=== PATIENT | male | born 1960 | race Caucasian/White ===

== ENCOUNTER 2017-08-06 09:27 | Outpatient (CLI) | payer BC ==
[2017-08-06 10:53] LABS: Bilirubin Negative (Negative); Blood, Urine Negative (Negative); Clarity CLEAR (Clear); Glucose, Urine (Dipstick) >=1000 mg/dL (Negative); Leukocyte Negative (Negative); Nitrite Negative (Negative); Protein, Urine (Dipstick) Negative (Neg-Trace); Specific Gravity, Urine 1.034 (1.002-1.036); Urobilinogen 0.2 mg/dL (0.2-1.0); pH, Urine 5.5 (5.0-9.0)
[2017-08-06 10:54] LABS: Prothrombin Time 13.2 SEC (12.0-14.7)
[2017-08-06 10:55] LABS: Bacteria/HPF None Seen HPF (None Seen); Hyaline Casts/LPF 0-3 HYALINE CAST LPF (0-3 Hyaline); RBC/HPF 0-3 HPF (0-3); Squamous Epithelial None Seen HPF (0-3); WBC/HPF None Seen HPF (0-3)
[2017-08-06 11:04] LABS: Anion Gap 12 mmol/L (10-20); BUN (Urea Nitrogen) 16 mg/dL (8.4-25.7); Calc. Creatinine Clearance 0 mL/min (70-130); Carbon Dioxide 29 mmol/L (22-29); Chloride 103 mmol/L (98-107); Estimated GFR-MDRD 57; Glucose 245 mg/dL (70-105); Potassium 4.4 mmol/L (3.5-5.1); Sodium 140 mmol/L (136-145)
[2017-08-06 11:33] LABS: Hemoglobin 16.7 g/dL (14.0-18.0); Mean Corpuscular HGB CONC 33.5 g/dL (32.0-36.0); Mean Corpuscular Hemoglobin 31.6 pg (27.0-31.0); Mean Corpuscular Volume 94.2 fl (80.0-94.0); Mean Platelet Volume 11.3 fL (7.4-10.4); Platelet Count 107 thou/uL (130-400); RBC Distribution Width 11.7 % (11.5-14.5); Red Blood Cell (RBC) Count 5.28 mill/uL (4.70-6.10); White Blood Cell (WBC) Count 4.6 thou/uL (4.8-10.8)
--- NOTE | 2017-08-14 19:45 | EKG ---
Test Reason : Blood Pressure : / mmHG Vent. Rate : 057 BPM Atrial Rate : 057 BPM P-R Int : 170 ms QRS Dur : 104 ms QT Int : 426 ms P-R-T Axes : 022 003 006 degrees QTc Int : 414 ms Sinus bradycardia Otherwise normal ECG No previous ECGs available Confirmed by SRIDHAR MARQUEZ (2) on 08/14/2017 7:44:58 PM Referred By: ROSIBEL Confirmed By:SRIDHAR MARQUEZ
== END 2017-08-06 09:28 | disposition home or self-care (01) ==
LOC: LABBT 09:27
PROVIDERS: ATTEND Urology
DX: Z01.810 Encounter for preprocedural cardiovascular examination (principal); Z01.812 Encounter for preprocedural laboratory examination; N43.3 Hydrocele, unspecified
CPT/HCPCS: 80048; 81001; 85027; 85610; 85730; 87086; 93005; 93010

== ENCOUNTER 2017-08-16 07:15 | Day surgery (SDC) | payer BC ==
[2017-08-06 10:03] VITALS: BMI 37.0
[2017-08-16] MEDS ORDERED: Glycopyrrolate 0.2 MG/ML 5 ML SYRINGE ONE (07:56)
[2017-08-16] MEDS ORDERED: PROPOFOL 200 MG/20 ML VIAL ONE (07:56)
[2017-08-16] MEDS ORDERED: Ondansetron HCl/PF 4 MG/2 ML Vial ONE (07:56)
[2017-08-16] MEDS ORDERED: Lidocaine 1% PF 5 ML VIAL ONE (07:56)
[2017-08-16] MEDS ORDERED: Metoclopramide HCl 10 MG/2 ML VIAL ONE ×2 (07:56→09:31)
[2017-08-16] MEDS ORDERED: Succinylcholine Chloride 20 MG/ML 10 ml SYRINGE FS ONE (07:56)
[2017-08-16] MEDS ORDERED: PROVENTIL INHALER 6.7 G (200 INHALATIONS) ONE (07:56)
[2017-08-16] MEDS ORDERED: ePHEDrine/0.9% NaCl/PF SYRINGE 50 mg/10 ml ONE (07:56)
[2017-08-16] MEDS ORDERED: CEFAZOLIN/Water 2 GM/20 ML SYRINGE ONE (08:47)
[2017-08-16] MEDS ORDERED: Bacitracin Zinc Ointment 30 gm TUBE ONE (09:09)
[2017-08-16] MEDS ORDERED: Bupivacaine 0.25% HCL 30 ML VIAL ONE (09:09)
[2017-08-16] MEDS ORDERED: Fentanyl 250 MCG/5 ML VIAL ONE (09:15)
[2017-08-16] MEDS ORDERED: Albuterol Sulfate HFA (OR ONLY) ONE (09:55)
--- NOTE | 2017-08-16 11:33 | OP ---
DATE OF PROCEDURE: 08/16/2017 SERVICE: Urology. SURGEON: Aj Flores M.D. PREOPERATIVE DIAGNOSIS: Right hydrocele. POSTOPERATIVE DIAGNOSIS: Right hydrocele. PROCEDURE: Right hydrocelectomy in Lord's fashion. INDICATIONS FOR PROCEDURE: Mr. Mae is a 56-year-old white male who presented to me with right-jeffrey ed scrotal swelling which was found to be a noncommunicating hydrocele. This is bothering him and in terfering with his life and he elected to have an elective hydrocelectomy. Risks and benefits of the surgery were discussed and he has agreed to proceed forward. DESCRIPTION OF PROCEDURE: After identification of armband and verification of consent, the patient w as brought back to the operating room where he underwent general anesthesia with an LMA. He was left in the supine position and prepped and draped in usual sterile fashion. After appropriate timeout, a longitudinal incision was made over the upper part of the right hemiscrotum over the hydrocele. Di ssection was carried down through the dartos and external and internal spermatic fascia until the fuentes ica vaginalis was identified. This was done with Bovie and Metzenbaum scissors. The hydrocele sac w as dissected free from the surrounding tissues with blunt dissection until the hydrocele sac was free d up almost circumferentially. This was delivered through the scrotal incision until the hydrocele s ac and cord were all on the outside of the scrotum. The spermatic fascias were then gently swept katherin k to the spermatic cord until just the hydrocele sac was identified. An anterior location was chosen for the hydrocelectomy where a small incision was made using a 15 blade, straw colored fluid was hai cuated for approximately 500-600 mL. Once all the fluid was evacuated, the hydrocele sac was opened c ephalad and caudally, taking care to avoid injury to the epididymis or cord structures or testicle. A small portion of the hydrocele sac was excised and sent for routine pathologic evaluation. The res t of the hydrocele sac was small enough and a short enough that I felt that a Lord's hydrocelectomy w ould be sufficient rather than a full [place]ay excision. As such the 2-0 Vicryl was used to perform plicating sutures of the hydrocele sac until they were bunched up just lateral to the cord and testic le. Care was taken not to pass the suture through the epididymis or cord structures. Once this was completely done on both sides, the edges of the sac were everted with 2 separate 2-0 Vicryl sutures p osterior to the testicle to avoid a reaccumulation of fluid. Upon completion, there was excellent he mostasis and the hydrocele was completely gone. There were no abnormalities of the testicle. The te sticle had good blood flow. The testis was irrigated and the scrotal sac was irrigated. Any small p unctate bleeders were cauterized until there was a completely dry surgical field. A small incision w as made on the inferior aspect of the scrotum using the cutting current on the Bovie to pass a Penros e drain in, which was used for a hydrocele drain. This was sutured in with a 3-0 nylon. The dartos and spermatic fascias were then closed using a 2-0 Vicryl in a running fashion and the skin closed wi th a 4-0 Monocryl in a running fashion. Dermabond was applied and once dry, a scrotal support was ap plied. The patient was then awakened and taken to PACU for recovery in stable condition. COMPLICATIONS: None. ESTIMATED BLOOD LOSS: Less than 30 mL. RETAINED TUBES OR DRAINS: A quarter inch [place] on the right scrotum. SPECIMENS: Hydrocele sac. DISPOSITION: The patient will be discharged home and follow up with me next week for a drain removal .
== END 2017-08-16 13:17 | disposition home or self-care (01) ==
LOC: SDC 07:15
PROVIDERS: ATTEND Urology
PROC: 0VB60ZZ Excision of Right Tunica Vaginalis, Open Approach (ICD-10-PCS; principal; 2017-08-16)
DX: N43.3 Hydrocele, unspecified (principal); I10 Essential (primary) hypertension; E11.9 Type 2 diabetes mellitus without complications; G47.33 Obstructive sleep apnea (adult) (pediatric); N52.01 Erectile dysfunction due to arterial insufficiency; E78.5 Hyperlipidemia, unspecified; Z79.82 Long term (current) use of aspirin; Z79.84 Long term (current) use of oral hypoglycemic drugs; Z79.899 Other long term (current) drug therapy
CPT/HCPCS: 88302; J2001; J2405; J2704; J2765; J3010; S0020

== ENCOUNTER 2021-04-25 15:41 | Inpatient (IN) | payer BC ==
[~2021-04-25 15:41] MED LIST: Iopamidol-370 76% 500 ML 1 ML ONE
[2021-04-25 16:52] LABS: #Basophils 0.1 thou/uL (0.0-0.2); #Eosinphils 0.1 thou/uL (0.0-0.7); #Lymphocytes 0.9 thou/uL (1.20-3.40); #Monocytes 0.9 thou/uL (0.11-0.59); #Neutrophils 5.6 thou/uL (1.40-6.50); %Basophils 0.9 % (0.0-1.0); %Eosinophils 1.1 % (0.0-10.0); %Lymphocytes 12.4 % (21.0-51.0); %Monocytes 12.4 % (0.0-10.0); %Neutrophils 73.3 % (42.0-75.0); Hemoglobin 17.5 g/dL (14.0-18.0); Mean Corpuscular HGB CONC 34.4 g/dL (32.0-36.0); Mean Corpuscular Hemoglobin 32.1 pg (27.0-31.0); Mean Corpuscular Volume 93.2 fL (78.0-98.0); Platelet Count 132 thou/uL (130-400); RBC Distribution Width 11.8 % (11.5-14.5); Red Blood Cell (RBC) Count 5.45 mill/uL (4.70-6.10); White Blood Cell (WBC) Count 7.6 thou/uL (4.8-10.8)
[2021-04-25 17:16] LABS: ALT (SGPT) 41 U/L (8-55); AST (SGOT) 19 U/L (5-34); Albumin 4.6 g/dL (3.5-5.0); Alkaline Phosphatase 82 U/L (40-110); Anion Gap 16 mmol/L (10-20); BUN (Urea Nitrogen) 18 mg/dL (8.4-25.7); Bilirubin, Total 0.9 mg/dL (0.2-1.2); Calc. Creatinine Clearance 0 mL/min (70-130); Calcium 10.7 mg/dL (7.8-10.44); Carbon Dioxide 30 mmol/L (22-29); Chloride 97 mmol/L (98-107); Globulin 3.7 g/dL (2.4-3.5); Glucose 285 mg/dL (70-105); Potassium 4.2 mmol/L (3.5-5.1); Protein, Total 8.3 g/dL (6.0-8.3); Sodium 139 mmol/L (136-145)
[2021-04-25] MEDS ORDERED: Ondansetron PF 4 MG/2 ML Vial ONE (18:53)
[2021-04-25] MEDS ORDERED: Morphine 4 MG/ML VIAL ONE (18:53)
[2021-04-25] MEDS ORDERED: Ketorolac Tromethamine 30 MG/ML VIAL ONE (18:53)
[2021-04-25] MEDS ORDERED: Dextrose 50% Abboject 50 ML SYRINGE SLOW IVP PRN (20:49)
[2021-04-25] MEDS ORDERED: Dextrose 5% in Water 1,000 ML IV PRN (20:49)
[2021-04-25] MEDS ORDERED: HumaLOG 300 UNITS/3 ML VIAL SC PRN (20:49)
[2021-04-25] MEDS ORDERED: Ondansetron ODT 4 MG TAB PO PRN (20:49)
[2021-04-25] MEDS ORDERED: Lorazepam 2 MG/ML VIAL SLOW IVP PRN (20:49)
[2021-04-25] MEDS ORDERED: hydrALAZINE 20 MG/ML VIAL SLOW IVP PRN (20:49)
[2021-04-25] MEDS ORDERED: Morphine 4 MG/ML VIAL SLOW IVP PRN ×2 (20:49→21:09)
[2021-04-25] MEDS ORDERED: Ondansetron PF 4 MG/2 ML Vial IVP PRN (20:49)
[2021-04-25] MEDS ORDERED: Piperacillin/Tazobactam 4.5 GM VIAL ONE (20:57)
[2021-04-25] MEDS ORDERED: Piperacillin/Tazobactam 3.375 GM in Sodium Chloride 0.9% 100 ML IVPB SCH (21:00)
[2021-04-25] MEDS ORDERED: Enoxaparin Sodium 30 MG/0.3 ML SYRINGE SC SCH (21:00)
[2021-04-25 21:22] LABS: Prothrombin Time 12.7 sec (12.0-14.7)
[2021-04-25 22:02] LABS: SARS-CoV-2 NAA Rapid Test Not Detected (NotDetected)
[2021-04-25] MEDS: Famotidine/PF 20 mg/2ml Vial SLOW IVP SCH (23:04)
[2021-04-25 23:36] VITALS: BMI 36.6
[2021-04-25] MEDS ORDERED: FLU VACC QS2021-22(6MOS UP)/PF 60 MCG/0.5 ML SYRINGE IM ONE (23:45)
[2021-04-26] MEDS: Piperacillin/Tazobactam 3.375 GM in Sodium Chloride 0.9% 100 ML IVPB SCH ×2 (01:37→08:49)
[2021-04-26 06:30] LABS: Anion Gap 14 mmol/L (10-20); BUN (Urea Nitrogen) 17 mg/dL (8.4-25.7); Calc. Creatinine Clearance 96 mL/min (70-130); Carbon Dioxide 26 mmol/L (22-29); Chloride 101 mmol/L (98-107); Glucose 241 mg/dL (70-105); Potassium 3.9 mmol/L (3.5-5.1); Sodium 137 mmol/L (136-145)
[2021-04-26] MEDS: Famotidine/PF 20 mg/2ml Vial SLOW IVP SCH (08:49)
[2021-04-26] MEDS ORDERED: Aspirin Chewable 81 MG TAB PO SCH (09:00)
[2021-04-26] MEDS ORDERED: Amlodipine 5 MG TAB PO SCH (09:00)
[2021-04-26] MEDS ORDERED: Lisinopril 20 MG TAB PO SCH (09:00)
[2021-04-26] MEDS ORDERED: Midazolam HCl 2 mg/2 ml Vial ONE (10:47)
[2021-04-26] MEDS ORDERED: Fentanyl 100 MCG/2 ML VIAL ONE (10:47)
[2021-04-26] MEDS ORDERED: Bupivacaine 0.25% HCL 30 ML VIAL ONE (11:00)
[2021-04-26] MEDS ORDERED: Bupivacaine PF 0.5% 30 ML VIAL ONE (11:00)
[2021-04-26] MEDS ORDERED: Lidocaine 1% w/Epinephrine 1:100K 20 ML VIAL ONE (11:00)
[2021-04-26] MEDS ORDERED: Lidocaine 1% PF 5 ML VIAL ONE (11:50)
[2021-04-26] MEDS ORDERED: Rocuronium Bromide 10 MG/ML (10ML VIAL) ONE (11:50)
[2021-04-26] MEDS ORDERED: Dexamethasone 20 MG/5 ML VIAL ONE (11:50)
[2021-04-26] MEDS ORDERED: Ketorolac Tromethamine 30 MG/ML VIAL ONE (11:50)
[2021-04-26] MEDS ORDERED: Glycopyrrolate 0.2 MG/ML 5 ML SYRINGE ONE (11:50)
[2021-04-26] MEDS ORDERED: PHENYLEPHRINE-NS 100 MCG/ML 10 ML SYRINGE ONE (11:50)
[2021-04-26] MEDS ORDERED: Ondansetron PF 4 MG/2 ML Vial ONE (11:50)
[2021-04-26] MEDS ORDERED: ePHEDrine 50 MG/ML VIAL ONE (11:50)
[2021-04-26] MEDS ORDERED: PROPOFOL 200 MG/20 ML VIAL ONE (11:50)
[2021-04-26] MEDS ORDERED: HYDROmorphone 2 MG/ML VIAL SLOW IVP PRN (13:00)
[2021-04-26] MEDS ORDERED: Promethazine HCl 25 MG/ML VIAL IVPB PRN (13:00)
[2021-04-26] MEDS ORDERED: Promethazine HCl 25 MG/ML VIAL IM PRN (13:00)
[2021-04-26] MEDS ORDERED: Ondansetron HCl/PF 4 MG/2 ML Vial IVP PRN (13:00)
[2021-04-26] MEDS ORDERED: Ibuprofen 600 MG TAB PO PRN (13:11)
[2021-04-26] MEDS ORDERED: traMADol HCl 50 MG TAB PO PRN (13:11)
[2021-04-26] MEDS ORDERED: Acetaminophen 500 MG TAB PO PRN (13:11)
[2021-04-26 14:26] VITALS: BP 158/91; TEMP 97.7
== END 2021-04-26 16:00 | disposition home or self-care (01) | DRG 343 ==
LOC: ERS 15:41 → SURG B 20:49
PROVIDERS: ADMIT Specialist; ATTEND Specialist
PROC: 0DTJ4ZZ Resection of Appendix, Percutaneous Endoscopic Approach (ICD-10-PCS; principal; 2021-04-26)
DX: K35.80 Unspecified acute appendicitis (principal); Z20.822 Contact with and (suspected) exposure to COVID-19; Z28.21 Immunization not carried out because of patient refusal; E11.9 Type 2 diabetes mellitus without complications; I10 Essential (primary) hypertension; E66.9 Obesity, unspecified; Z68.36 Body mass index [BMI] 36.0-36.9, adult; Z98.890 Other specified postprocedural states; Z90.89 Acquired absence of other organs; Z79.899 Other long term (current) drug therapy; Z79.84 Long term (current) use of oral hypoglycemic drugs; Z79.82 Long term (current) use of aspirin
CPT/HCPCS: 36415; 36416; 71045; 74177; 80048; 80053; 83690; 85025; 85610; 85730; 88304; 93005; A4649; J1650; J1815; J1885; J2250; J2270; J2405; J2543; J3010; J3490; S0020; S0028; U0002